=== PATIENT | female | born 1985 | race Asian ===

== ENCOUNTER 2018-12-16 11:48 | Emergency (ER) | payer OTHER ==
[~2018-12-16] VITALS: Ht 157.5 cm; Wt 61.4 kg
[2018-12-16] MEDS ORDERED: CYCLOBENZAPRINE HCL 10 MG TABLET PO ONE (14:00)
[2018-12-16] MEDS ORDERED: KETOROLAC TROMETHAMINE 30 MG/ML VIAL IM ONE (14:00)
== END 2018-12-16 15:01 | disposition home or self-care (01) ==
LOC: EMS 11:49
DX: M62.838 Other muscle spasm (principal)
CPT/HCPCS: 96372; 99283; J1885